=== PATIENT | male | born 1955 | race Caucasian/White ===

== ENCOUNTER → 2025-02-10 | Outpatient (CLI) | payer OTHER ==
--- NOTE | 2025-02-10 15:45 | HMCSR ---
APPROVED REPORT EXAM: Two-dimensional and M-mode echocardiogram with Doppler and color Doppler. INDICATION ICD: Unspecified Atrial fibrillation I48.91 2D Dimensions RVDd3.6 cmLVEF(%)50.1 (>50%)LVED Vol(simp.)102.0 mL IVSd0.8 (0.7-1.1cm)FS(%)26 %LVES Vol(simp.)50.0 mL LVDd5.2 (3.8-5.6cm)LA (2D)4.2 (1.6-4.0cm)LVEF(%, simp.)52 % PWd1.1 (0.7-1.1cm)Ao Root(2D)3.5 (2.0-3.7cm)LA ESV INDEX (BP)30.58 mL/m2 IVSs1.0 cmLVOT diam2.2 (1.8-2.4cm) LVDs3.8 (2.5-4.0cm)IVC diam1.5 cm PWs1.0 cm M-Mode Dimensions EPSS1.1 cm LA (MM)4.5 (1.6-4.0cm) Ao Root(MM)3.6 (2.0-3.7cm) Aortic Valve AoV Vmax1.8 m/Porfirio Peak GR12.8 mmHgLVOT Vmax1.3 m/s AoV VTI0.4 mAo Mean GR6.1 mmHgLVOT VTI0.25 m ENMANUEL (VMAX)2.63 cm2AVA (VTI) 2.6 cm2 Mitral Valve MV E Vmax71.9 cm/sDECEL Dxrk083 ms MV A Vmax84.2 cm/sP 1/2 T62 ms E/A ratio0.9MVA (PHT)3.6 cm2 TDI E/E' Medial8.6E/E' Lateral6.9 Medial E' Peak V8.32 cm/sLateral E' Peak V10.49 cm/s Pulmonary Valve PV Vmax1.0 m/sPV VTI0.18 mPV Mean GR2.3 mmHg PV Peak GR4.0 mmHg Tricuspid Valve TR Vmax2.4 m/sRVSP22.1 mmHg TR Peak GR23.4 mmHg Left Ventricle The left ventricle is normal size. There is normal LV segmental wall motion. There is normal left patrick tricular wall thickness. LVEF is 50-55%. No left ventricle thrombus noted on this study. The left patrick tricular diastolic function is normal. Right Ventricle The right ventricle is normal size. The right ventricular systolic function is normal. Atria The left atrium size is normal. The right atrium size is normal. Aortic Valve Aortic valve is trileaflet and opens well. No aortic regurgitation is present. There is no aortic monica vular stenosis. Mitral Valve The mitral valve is normal in structure. There is trivial mitral valve regurgitation noted. There is no mitral valve stenosis. Tricuspid Valve The tricuspid valve is normal in structure. There is trace tricuspid valve regurgitation noted. Pulmonic Valve The pulmonary valve is normal in structure. There is trivial pulmonic valvular regurgitation. Great Vessels The aortic root is normal in size. The IVC is normal in size and collapses >50% with inspiration. Pericardium There is no pericardial effusion. Other Information Quality : Adequate Conclusion LVEF is 50-55%. There is normal LV segmental wall motion. The aortic root is normal in size. There is no pericardial effusion.
--- NOTE | 2025-02-11 07:44 | EKG ---
[facility] Test Date: 2025-02-10 Test Time: 14:23:34 Pat Name: JOLEEN CASILLAS Department: [facility] Room: Gender: M Cit[employer] Picker: [phone] : [phone] Requested By: BEVERLY SCHWAB Order Number: [id number] Reading MD: Pancho Wise Measurements Intervals [place] Rate: 69 P: 2 FL: 136 QRS: 6 QRSD: 111 T: 86 QT: 394 QTc: 424 Interpretive Statements Sinus rhythm No previous ECG available for comparison Electronically Signed On 02-11-2025 12:28:26 CDT by Pancho Wise Please click the below link to view image of tracing.
== END | disposition home or self-care (01) ==
LOC: RAH 13:43
PROVIDERS: ATTEND Chiropractor
DX: I48.91 Unspecified atrial fibrillation (principal)
CPT/HCPCS: 93005; 93306